=== PATIENT | male | born 2000 | race Caucasian/White ===

== ENCOUNTER 2021-02-26 16:46 | Emergency (ER) | payer BC, SELFPAY ==
[2021-02-26 16:47] VITALS: BP 129/86; PULSE 65; RESP 14; TEMP 36.6; O2SAT 99; BMI 26.2
--- NOTE | 2021-02-26 17:10 | EX.ED.GENINJ ---
HPI History of Present Illness Chief Complaint: Back Narrative Narrative: 20-year-old male presenting with back pain. He states that his lumbar spine. Patient states that he initially just woke up with back pain and didn't think much of it however today he fell off of a 1 foot step stool and landed on his back and now it hurts worse. He denies previous back problems. He denies any medical history. He denies any surgical history. PFSH PFSH Medical History Non-smoker Home Medications naproxen [Naprosyn] 500 mg PO BID PRN #30 tab 02/26/21 [Rx Last Taken Unknown] tizanidine [Zanaflex] 4 mg PO Q8H PRN #10 cap 02/26/21 [Rx Last Taken Unknown] Allergy/AdvReac Type Severity Reaction Status Date / Time erythromycin base Allergy NEEDS Verified 02/26/21 17:10 FOLLOW-UP Sulfa (Sulfonamide Allergy NEEDS Verified 02/26/21 17:10 Antibiotics) FOLLOW-UP Social History Smoking Status: Never smoker ROS ROS ED Constitutional Constitutional ED: Denies chills, fever(s) or subjective Eyes Eyes: Denies blurry vision or change in vision ENT ENT ED: Denies ear pain or rhinorrhea Cardiovascular Cardiovascular: Denies chest pain or palpitations Respiratory/Chest Respiratory/Chest: Denies cough, dyspnea or sputum Gastrointestinal Gastrointestinal: Denies abdominal pain, nausea or vomiting Genitourinary Genitourinary ED: Denies dysuria or hematuria Musculoskeletal Musculoskeletal: Reports back pain; Denies myalgias Integumentary Denies abscess, Abrasions or rash Neurologic Neurologic: Denies headache(s) or paresthesias Psychiatric Psychiatric: Denies anxiety or depression EXAM Physical Exam Const Vital Signs: 02/26/21 16:47 Temperature 98 F Temperature Source Temporal Pulse Rate 65 Respiratory Rate 14 Blood Pressure 129/86 H Blood Pressure Mean 100 Pulse Ox 99 Oxygen Delivery Method Room Air Positive well nourished General Appearance ED: NAD HEENT Negative for atraumatic Throat: other Eyes PERRL and EOMs intact bilaterally Resp normal respiratory effort and clear to auscultation bilaterally Cardio regular rhythm Rate: regular rate Back/Spine Back/Spine Narrative: Tenderness to palpation diffusely over the lumbar spine. No midline spinal tenderness, deformity, step-off. Extremity normal to inspection and full ROM General Extremety ED: Negative for deformity or tenderness General Extremity: Negative for deformity Neuro oriented x3 Sensorium / Orientation: alert Psych mental status grossly normal Skin no rashes or lesions noted MDM MDM MDM Narrative Medical decision making narrative: 20-year-old male presenting for back pain. He states he initially woke up with back pain and felt like he had a muscle pull however today he fell off of a 1 foot stool and landed on his back and now it hurts worse. On examination he has no midline spinal tenderness or deformity. He does have generalized tenderness in lumbar spine. He is able to sit from lying and stand without difficulty. Patient was given [place] in the ED. I did obtain lumbar spine images and on my interpretation there appears to be no lumbar spinal fracture or other acute abnormality. Given patient's negative findings I do not believe he needs narcotic pain medication for home I will treat him with Zanaflex and Naprosyn. He is amenable to this. Patient stable for discharge. Impression: 1. Back contusion 2. Lumbar strain Radiography Diagnostic Testing: Radiology Impression Lumbar Spine X-Ray 02/26/21 17:16 IMPRESSION: No evidence of lumbar spinal fracture or spondylolisthesis. at 1753 Reported and signed by: Kasi Newell MD Electronically Signed: Kasi Newell MD at 17:52 EDT Tel , Service support , Discharge Plan Triage Chief Complaint: Back ED Provider: Carlos Cabrales Dx/Rx/DC Orders Instructions: ED Back Contusion Prescriptions: New tizanidine [Zanaflex] 4 mg capsule 4 mg PO Q8H PRN (Reason: muscle spasticity) Qty: 10 RF: 0 naproxen [Naprosyn] 500 mg tablet 500 mg PO BID PRN (Reason: pain) Qty: 30 RF: 0 Primary Care Provider: Stef English Referrals: Stef English MD [Primary Care Provider] - Disposition Disposition: Home, Self Care Discharge Date/Time: 02/26/21 18:25
[2021-02-26] MEDS: HYDROcodone Bitartrate/Apap 5/325 Tablet PO (17:15)
--- NOTE | 2021-02-26 17:16 | RAD_ITS ---
EXAM: XR LUMBOSACRAL SPINE, 2 OR 3 VIEWS : 2001 CLINICAL INDICATION: back pain TECHNIQUE: Frontal and lateral views of the lumbar spine and sacrum. This report was created using [employer] report [employer] technology. COMPARISON: None. FINDINGS: VERTEBRAE: Unremarkable. Preserved vertebral body height. No fracture. No spondylolisthesis. Preservation of the normal lumbar lordosis. No significant facet arthropathy. DISC SPACES: No acute findings. Disc spaces are maintained. GASTROINTESTINAL TRACT: Unremarkable as visualized. Included bowel gas pattern is non-obstructive. RAD/Lumbar Spine 2 or 3 Views IMPRESSION: No evidence of lumbar spinal fracture or spondylolisthesis. at 1753 Reported and signed by: Kasi Newell MD Electronically Signed: Kasi Newell MD at 17:52 EDT Tel , Service support ,
== END 2021-02-26 18:25 | disposition home or self-care (01) ==
PROVIDERS: Emergency Provider Student in an Organized Health Care Education/Training Program; PCP Family Medicine
DX: S20.229A Contusion of unspecified back wall of thorax, initial encounter (principal); S39.012A Strain of muscle, fascia and tendon of lower back, initial encounter; W11.XXXA Fall on and from ladder, initial encounter
CPT/HCPCS: 72100; 99283

== ENCOUNTER 2023-08-01 16:25 | Emergency (ER) | payer BC, SELFPAY ==
[2023-08-01 16:26] VITALS: BP 137/85; PULSE 99; RESP 16; TEMP 36.6; O2SAT 99; BMI 29.2
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
[2023-08-01 18:17] LABS: Absolute Lymphocyte Count 1.12 X10^3/uL (0.83-4.51); Absolute Neutrophil Count 5.7 X10^3/uL (2.0-7.7); Basophil# 0.02 X10^3/uL; Basophil% 0.3 % (0-1); Eosinophil# 0.03 X10^3/uL; Eosinophils% 0.4 % (0-5); Hematocrit 43.7 % (40-54); Hemoglobin 14.2 g/dL (13.0-16.5); Lymphocyte # 1.12 X10^3/ul (0.83-4.51); Lymphocyte % 14.9 % (19-41); Mean Corp Hgb Conc 32.5 g/dL (32-36); Mean Corpuscular Hgb 27.1 pg (27.0-32.0); Mean Corpuscular Volume 83.4 fL (80-94); Mean Platelet Vol. 10.8 fl (6.2-12.0); Monocyte# 0.64 X10^3/uL; Monocyte% 8.5 % (0-10); NRBC Flagged by Analyzer 0 % (0-5); Neutrophil % 75.6 % (47-70); Platelet Count 176 K/mm3 (150-450); RBC Distribution Width CV 12.4 % (11.6-14.6); RBC Distribution Width SD 37.7 fl (35.1-43.9); Red Blood Count 5.24 M/mm3 (4.6-6.2); White Blood Count 7.5 K/mm3 (4.4-11.0)
[2023-08-01 18:33] LABS: Anion Gap 4 (5-15); BUN 16 mg/dL (7-18); BUN/Creat Ratio 14.5 RATIO (10-20); Calcium,Total 9.1 mg/dL (8.5-10.1); Chloride 109 mmol/L (98-107); EST Glomerular Filtration Rate 89 mL/min (>60); Est Glom Filt Rate - Afr Amer 108 mL/min (>60); Estimated Creatinine Clearance 129.32 ml/min; Glucose 100 mg/dL (74-106); Potassium 3.9 mmol/L (3.5-5.1); Sodium Level 141 mmol/L (136-145)
[2023-08-01 19:33] LABS: Bacteria 0 SEEN /hpf (None Seen); Mucous, Urine 0 SEEN /hpf (<or=2+); Red Blood Cells-Urine 0 SEEN /hpf (0-5); Squamous Epithelial Cells - UA 0 SEEN /hpf (0-5)
[2023-08-01 19:35] LABS: Color, Urine Yellow (Yellow); Glucose, Dipstick Normal (Normal); Ketone-Dipstick 50 mg/dl (Negative); Leukocyte Esterase-Dipstick 25 /ul (Negative); Nitrite-Dipstick Negative (Negative); Occult Blood-Urine 10 /ul (Negative); Protein-Dipstick 30 mg/dl (Negative); Urine Bilirubin Dipstick Negative (Negative); Urine Clarity Clear (Clear); Urine Urobilinogen Normal (Normal); Urine pH 6.5 (5.0 - 8.0)
[2023-08-01 19:52] LABS: White Blood Cells 0-5 SEEN /hpf (0-5)
[2023-08-01 20:33] VITALS: PULSE 74; RESP 16; O2SAT 98
== END 2023-08-01 20:33 | disposition home or self-care (01) ==
PROVIDERS: Emergency Provider Emergency Medicine; PCP Family Medicine; Visit Provider Emergency Medicine
DX: S39.012A Strain of muscle, fascia and tendon of lower back, initial encounter (principal); V89.2XXA Person injured in unspecified motor-vehicle accident, traffic, initial encounter
CPT/HCPCS: 74177; 80048; 81001; 85025; 99284; Q9967; A4216

== ENCOUNTER 2024-04-09 12:24 | Emergency (ER) | payer BC, SELFPAY ==
[2024-04-09 12:25] VITALS: BP 144/87; PULSE 78; RESP 16; TEMP 36.6; O2SAT 98; BMI 28.7
--- NOTE | 2024-04-09 12:50 | RAD_ITS ---
STUDY: X-RAY - UNILATERAL RIBS ( LEFT ) WITH CHEST REASON FOR EXAM: Male, 23 years old. Pain, posterior lower rib pain, muscle ache. TECHNIQUE - RIBS: 4 views of the left ribs. TECHNIQUE - CHEST: Single PA view of the chest. COMPARISON: None. FINDINGS - RIBS: Normal visualized left ribs without a demonstrated fracture. FINDINGS - CHEST: The lungs are clear and expanded. There is no demonstrated pleural abnormality. Normal size heart. Normal mediastinum and sherry. Normal visualized pulmonary arteries. Normal visualized aortic arch and descending thoracic aorta. Normal visualized thoracic spine. Normal visualized ribs, clavicles, and shoulders. There is no demonstrated abnormality of the visualized soft tissue structures of the upper abdomen. RAD/Ribs Uni Min 3V w/PA Chest IMPRESSION: RIBS: Normal x-ray examination of the left ribs. CHEST: Normal x-ray examination of the chest. Electronically Signed: Jose Niño MD at 13:09 EDT ,
--- NOTE | 2024-04-09 12:50 | EX.ED.DYSGE1 ---
HPI History of Present Illness Chief Complaint: General Illness Informant: patient Narrative Narrative: Plan a history of pain left-sided ribs with certain movements has dyspnea. No wheezing. Has been to the chiropractor twice with adjustment states no improvement of pain last time seen 2 days ago. Ibuprofen taken initial first couple days. Denies wheezing. Denies recent travel, surgeries, or immobilizations. No history of PE or DVT. Has not exercised since he felt symptoms. No history of similar. Currently no discomfort. PFSH PFSH Medical History Non-smoker Home Medications ?Medication ?Instructions ?Recorded ?Last Taken ?Type cyclobenzaprine 10 mg tablet 10 mg PO TID PRN Muscle Spasm #20 04/09/24 Unknown Rx TABLETS ibuprofen 600 mg tablet 600 mg PO Q6H PRN PRN pain #20 04/09/24 Unknown Rx TABLETS Allergy/AdvReac Type Severity Reaction Status Date / Time erythromycin base Allergy NEEDS Verified 04/09/24 12:24 FOLLOW-UP Sulfa (Sulfonamide Allergy NEEDS Verified 04/09/24 12:24 Antibiotics) FOLLOW-UP Social History housing: house Smoking Status: Never smoker ROS ROS ED Constitutional Constitutional ED: Denies chills, fever(s) or sweats Eyes Eyes: Denies change in vision ENT ENT ED: Denies dysphagia or sore throat Cardiovascular Cardiovascular: Reports other Details: Left rib pain ; Denies chest pain, leg edema, palpitations or racing heartbeat Respiratory/Chest Respiratory/Chest: Reports dyspnea on exertion; Denies cough or dyspnea Gastrointestinal Gastrointestinal: Denies abdominal pain, diarrhea, nausea or vomiting Genitourinary Genitourinary ED: Denies dysuria, hematuria or urinary frequency Musculoskeletal Musculoskeletal: Denies back pain, extremity pain or neck pain Integumentary Denies rash or wounds Neurologic Neurologic: Denies headache(s), paresthesias or weakness EXAM Physical Exam Const Vital Signs: 04/09/24 12:25 04/09/24 12:50 Temperature 97.8 F Temperature Source Temporal Pulse Rate 78 Respiratory Rate 16 Respiratory Effort Splinting Respiratory Pattern Normal Blood Pressure 144/87 H Blood Pressure Mean 106 Pulse Ox 98 Oxygen Delivery Method Room Air Positive well nourished and well developed General Appearance ED: well developed and NAD HEENT Reports moist mucous membranes normocephalic and atraumatic Eyes EOMs intact bilaterally and conjunctivae normal General Eye ED: Yes normal appearance of both eyes Neck no lymphadenopathy and supple General: Negative for tenderness Chest Wall Chest Narrative: No crepitus of the ribs bilaterally. Mild discomfort with palpation in the left lower lateral. Chest: tenderness Resp normal respiratory effort and normal air movement Resp Narrative: Symmetric breath sounds bilaterally. Effort and Inspection: symmetric chest movement; Negative for respiratory distress Cardio regular rate, regular rhythm and no murmurs Peripheral Pulses: pulses 2+ throughout GI normal to inspection, nondistended, normoactive bowel sounds and non-tender Palpation: Negative for guarding or rebound tenderness present Back/Spine no CVA tenderness and no thoracic nor lumbar tenderness Back/Spine Narrative: This para Thoracic fullness discomfort on left side with side bent to the left. Extremity normal to inspection General Extremety ED: Negative for edema or tenderness General Extremity: Negative for edema Neuro oriented x3 and no sensory deficits noted Sensorium / Orientation: awake and alert Skin no rashes or lesions noted and no wounds MDM MDM MDM Narrative Medical decision making narrative: Interventions / MDM: Differential diagnosis: Somatic dysfunction thoracic spine and ribs. Diagnosis considered but do not suspect: Fracture, pneumothorax, any studies negative. My EKG interpretation: N/A Imaging independently reviewed and interpreted by myself: Left ribs PA chest 4 views: No pneumothorax no rib fractures. External documents reviewed: N/A Test considered but not ordered:N/A ED course: Patient no acute distress. Having on and off symptoms for the last 6 days. He has not adjustments performed reported worsening symptoms. Image studies or further evaluation. Results were negative. Discussed with patient I do feel dysfunction function midthoracic spine on the left. Discussed HVLA bedside perform isolated T6 region. Improving motion instead discomfort. Discussed inflammatory response which required continued ibuprofen and fluids. He will follow-up with his PCP and his chiropractor outpatient. All questions were answered. Re-evaluation: stable Disposition discussed with patient/family/significant other: Patient Case discussed with consulting clinician: N/A This note was generated with [employer] dictation software. It may contain incorrect words, spelling, and punctuation that were not noted in checking the note before signing. Radiography Diagnostic Testing: Clinical Impression(s) from Imaging Studies Ribs w/Chest X-Ray 04/09/24 12:50 IMPRESSION: RIBS: Normal x-ray examination of the left ribs. CHEST: Normal x-ray examination of the chest. Electronically Signed: Jose Niño MD at 13:09 EDT , Discharge Plan Triage Chief Complaint: General Illness ED Provider: Fredy Prasad Dx/Rx/DC Orders Clinical Impression: Somatic dysfunction of thoracic region, Pain in rib Instructions: ED Thoracic Spine Strain Prescriptions: New cyclobenzaprine 10 mg tablet 10 mg PO TID PRN (Reason: Muscle Spasm) Qty: 20 0RF ibuprofen 600 mg tablet 600 mg PO Q6H PRN PRN (Reason: pain) Qty: 20 0RF Stand Alone Forms: ED Work / School Excuse Primary Care Provider: Stef English Referrals: Stef English MD [Primary Care Provider] - 1 Week if not improving Activity Restrictions/Additional Instructions: Rib x-rays negative. Exam concerns for somatic function of thoracic spine leading to rib dysfunction. HVLA performed in the ED. Take medications as prescribed. No driving while using cyclobenzaprine. Follow-up your doctor for reevaluation. Print Language: Yoruba Disposition Disposition: Home, Self Care Discharge Date/Time: 04/09/24 14:13
== END 2024-04-09 14:13 | disposition home or self-care (01) ==
PROVIDERS: Emergency Provider Emergency Medicine; PCP Family Medicine; Referring Provider Emergency Medicine; Visit Provider Emergency Medicine
DX: M99.02 Segmental and somatic dysfunction of thoracic region (principal); R07.81 Pleurodynia
CPT/HCPCS: 71101; 99282